=== PATIENT | female | born 1940 | race Caucasian/White ===

== ENCOUNTER 2016-07-10 15:22 | Emergency (ER) | payer OTHER ==
[~2016-07-10] VITALS: Ht 152.4 cm; Wt 73.0 kg
[~2016-07-10 15:22] MED LIST: ACCUPRIL40 MG PO; AMARYL2 MG PO; ANTACID ULTRA1000 M1; ASPIRIN81 M1 PO; ATIVAN0.5 MG PO; BACTRIM DS 8001 TA1 PO; CEFOTAXIME IJ; CIPROFLOXACIN500 MG PO; CLONIDINE0.3 MG PO; COLACE100 MG PO; COREG25 MG PO; DO NOT PROFILE T1 EA; DOXYCYCLINE HY100 M3 PO; FE TINIC PO; Flagyl500 M1 IV; GLUCOPHAGE500 MG PO; GLYBURIDE5 MG PO; HYDROCHLOROTHIA25 MG PO; I VITE PO; LANTUS100 U/ML SC; LASIX20 MG PO; LEVEMIR SC; LIPITOR80 MG PO; MASON NATURAL2000 IU PO; MIRALAX17 GM/PACK PO; NATURE'S BLEND F1 MG PO; NORCO 325 MG-51 TAB PO; NORVASC2.5 MG PO; NOVOLIN R100 U/ML SC; OYSTER CALCIUM500 M1 PO; PLAVIX75 MG PO; PROTONIX40 MG PO; TYLENOL325 M1 PO; Tegretol-Xr 20200 MG PO; URECHOLINE25 MG PO; VICODIN ES 7501 TA1 PO; VITAMIN D31000 IU PO; [UNRECOGNIZED DRUG - SUPPLY]
[2016-07-10 15:36] LABS: BASO % 0.2 % (0.0-1.0); EOS # 0.1 10*3/uL (0.0-0.4); EOS % 1.1 % (1.0-4.0); HEMATOCRIT 31.7 % (37.0-47.0); HEMOGLOBIN 10.3 g/dl (12.0-16.0); LYMPH # 4.4 10*3/uL (1.3-4.4); LYMPH % 48.5 % (27.0-41.0); MEAN CELL VOLUME 101.3 fl (81.0-99.0); MEAN CORPUSCULAR HGB 32.9 pg (27.0-31.0); MEAN CORPUSCULAR HGB CONC 32.5 g/dl (33.0-37.0); MEAN PLATELET VOLUME 10.2 fl (9.6-12.3); MONO # 0.4 10*3/uL (0.1-1.0); MONO % 4.4 % (3.0-9.0); NEUT # 4.1 10*3/uL (2.3-7.9); NEUT % 45.6 % (47.0-73.0); PLATELET COUNT AUTOMATED 166 10*3/uL (130-400); RED BLOOD COUNT 3.13 10*6/uL (4.10-5.10); RED CELL DISTRI WIDTH 13.7 % (0-14.5)
[2016-07-10 15:45] LABS: PROTHROMBIN TIME 10.8 SECONDS (9.0-12.4)
[2016-07-10 15:52] VITALS: BP 160/62
[2016-07-10 15:52] LABS: ALBUMIN 3.4 gm/dl (3.1-4.5); ALKALINE PHOSPHATASE 83 U/L (45-117); BILIRUBIN, TOTAL 0.1 mg/dl (0.2-1.0); BUN 49 mg/dl (7-24); CARBON DIOXIDE 28 mmol/L (21-32); CHLORIDE 105 mmol/L (98-107); CKMB 1.5 ng/ml (0.5-3.6); CPK 74 U/L (26-192); EST GLOM FILT AFRICAN AMERICAN 41 ml/min; GLUCOSE 160 mg/dL (65-99); MAGNESIUM 2.5 mg/dL (1.5-2.1); POTASSIUM 3.9 mmol/L (3.5-5.1); SGOT/AST 19 IU/L (3-35); SGPT/ALT 28 U/L (12-78); SODIUM 142 mmol/L (136-145); TOTAL PROTEIN 7.6 gm/dL (6.4-8.2)
[2016-07-10 15:53] LABS: C-REACTIVE PROTEIN < 0.29 MG/DL (0-0.3)
[2016-07-10 15:55] LABS: TROPONIN I 0.245 ng/ml (<0.045)
== END 2016-07-10 16:06 | disposition short-term general hospital (02) ==
LOC: ED 15:22
PROVIDERS: Emergency Medicine
DX: I21.3 ST elevation (STEMI) myocardial infarction of unspecified site (principal); I25.10 Atherosclerotic heart disease of native coronary artery without angina pectoris; E11.9 Type 2 diabetes mellitus without complications; Z90.49 Acquired absence of other specified parts of digestive tract; Z88.0 Allergy status to penicillin; Z88.1 Allergy status to other antibiotic agents; Z88.6 Allergy status to analgesic agent; Z88.8 Allergy status to other drugs, medicaments and biological substances; Z79.899 Other long term (current) drug therapy

== ENCOUNTER 2016-07-28 10:02 | Inpatient (IN) | payer OTHER ==
[~2016-07-28] VITALS: Ht 152.4 cm; Wt 76.9 kg
--- NOTE | ~2016-07-28 | CON ---
[place], [place] REPORT OF CONSULTATION NAME: GISELE CHAO UNIT #: [id number] ROOM: 507 DOCTOR: TONY SIMMONS MD BIRTHDATE: [birth year] DOS: 07/28/2016 CARDIOLOGY CONSULTATION REASON FOR CONSULTATION: Chest pain. HISTORY OF PRESENT ILLNESS: Gisele is a 76-year-old woman who does have a history of diabetes type 2, hypertension, hyperlipidemia, remote stroke, depression and some degree of dementia. She does have a history of atherosclerotic heart disease and has been seen in the past by ____. His note from 2008 indicates that she has had a history of myocardial infarction and previous stents, but the details were not available. The patient recently presented to the Emergency Room at [facility] with substernal chest pain, which radiated into her back between her shoulder blades. Her electrocardiogram showed inferior ST segment elevation and therefore she was sent by air ambulance to [facility] and was taken to the catheterization laboratory by Dr. Kwadwo Michael. At time of her catheterization, she was found to have moderate diffuse disease of a heavily calcified left main coronary artery. The LAD had 2 patent stents in its proximal and mid portions. The circumflex had a 90% ostial obtuse marginal stenosis. The right coronary artery was a dominant vessel with a 90% ostial stenosis and 100% mid vessel occlusion. She did undergo placement of two drug-eluting stents in the right coronary artery, a Synergy 2.75 x 3.8 mm stent was placed in the mid portion of the vessel and a 3.0 x 28 mm stent was placed in the proximal portion of the vessel. There was no stenosis at the end of the procedure in the right coronary artery. The patient tolerated the procedure well. Cardiac troponin levels were not obtained. She was discharged on dual antiplatelet therapy with Effient and aspirin. She states she was doing well until today, she awakened with pain in her left chest. She was given a single nitroglycerin at the snf and her pain resolved quickly, but she states that the overall duration of the pain was about an hour. Her electrocardiogram did not show any acute changes and her cardiac troponin levels are minimally elevated at 0.048. A cardiology consultation was therefore requested. Currently, the patient states that she feels well and indeed states that the pains that she had this morning were not similar to what she had had when she had her heart attack a few weeks ago. PAST MEDICAL HISTORY: Includes, 1. Type 2 diabetes mellitus. 2. Hypertension. 3. Hyperlipidemia. 4. History of stroke. 5. Depression. 6. Mild dementia. 7. Gastroesophageal reflux disease. [place], [place] REPORT OF CONSULTATION NAME: GISELE CHAO UNIT #: [id number] ROOM: 507 DOCTOR: TONY SIMMONS MD BIRTHDATE: [birth year] 8. ICD placed by Dr. Jasso in the distant past. Details not currently available. FAMILY HISTORY: Negative for early coronary disease. REVIEW OF SYSTEMS: The patient denies diplopia, loss of vision, or focal weakness. She denies lightheadedness or syncope. She denies orthopnea or PND. She is sedentary and mostly bed bound. She denies fevers, chills or sweats. She denies any recent weight change. She denies orthopnea or PND. She denies nausea or vomiting. She denies any cough, hemoptysis, or hematemesis. She denies any change in bowel or bladder habits and denies blood in her urine or stools. She denies any peripheral edema. The remainder of the review of systems is negative except as noted above. MEDICATIONS: Prior to admission, Pulmicort Respules 0.5 mg inhaled b.i.d., Atrovent by nebulizer every 4 hours, Xalatan eye drops in both eyes at bedtime, acetaminophen p.r.n., atorvastatin 80 mg daily, urecholine 25 mg daily, oyster shell calcium 500 mg t.i.d., carbamazepine 200 mg t.i.d., cholecalciferol 1000 units 5 tablets daily, clonidine 0.3 mg b.i.d., docusate 100 mg b.i.d., folic acid 1 mg daily, furosemide 40 mg daily, glimepiride 2 mg daily, hydralazine 100 mg daily, hydrocodone 2 tablets q. 6 hours, Ferrex 150 mg daily, metoprolol succinate 100 mg daily, pantoprazole 40 mg daily, potassium 10 mEq daily, Effient 10 mg daily, quinapril 40 mg daily, vitamin A, C, E and zinc daily, Trintellix 20 mg at bedtime, NovoLog insulin by sliding scale, Levemir insulin 30 units subcutaneously daily, Aspercreme applied t.i.d. as needed and fentanyl transdermal patch 12.5 mcg changed every third day. ALLERGIES: SHE LISTS ALLERGIES TO NIACIN, CEPHALOSPORINS, PENICILLIN, TAPE, CODEINE, PYRIDOXINE, RIBOFLAVIN, AND THIAMINE. SOCIAL HISTORY: The patient is a snf resident. She does not smoke or drink. PHYSICAL EXAMINATION: GENERAL: The patient is an elderly white female who is awake, alert and oriented. VITAL SIGNS: Pulse is 80 and regular, blood pressure is 146/58. She is afebrile. She weighs 76.9 kg and has a body mass index of 33.1 HEENT: Normocephalic, atraumatic. Extraocular muscles are intact. Sclerae are clear. Pupils are equal, round and reactive to light. The oral mucosa is moist. Tongue is midline. NECK: Supple. She has no jugular distention or hepatojugular reflux. Carotids are full. She does have transmitted murmurs into the carotids bilaterally. She has no neck or supraclavicular masses. No thyromegaly. RESPIRATORY: Respirations are unlabored. Her chest is clear. She has no presacral edema or chest wall tenderness. CARDIOVASCULAR: Her heart has a regular rhythm. She has a grade 3/6 late peaking systolic ejection murmur along the left sternal border radiating into the base. No diastolic murmurs are present. The PMI is not displaced. There is no precordial heave, lift or thrill. [place], [place] REPORT OF CONSULTATION NAME: GISELE CHAO UNIT #: [id number] ROOM: 507 DOCTOR: TONY SIMMONS MD BIRTHDATE: [birth year] ABDOMEN: Soft and normally active without masses, organomegaly or bruits. EXTREMITIES: Showed no edema. Peripheral pulses are diminished, but palpable in the feet bilaterally. Her electrocardiogram showed sinus rhythm with an inferior wall myocardial infarction. The QT interval is at the upper limits of normal. No acute ST elevation is seen. She did have an echocardiogram when she was recently hospitalized at [facility] on 07/11/2016. The left ventricle was normal in size with septal hypokinesis, but was otherwise normal ejection fraction 45-50%. The left atrium was poorly visualized. There was focal calcification of the mitral valve leaflets with mild mitral insufficiency, aortic valve leaflets were not well visualized. Mild aortic stenosis was felt to be present. Hemoglobin is 9.5, white count 8000, platelet count 144,000. Sodium 145, potassium 4.6, BUN 40, creatinine 1.27, magnesium 2.3, troponin 0.048. IMPRESSIONS: 1. Recent acute ST elevation myocardial infarction involving the inferior wall, early July 2016. The patient was treated with 2 drug-eluting stents to the right coronary artery. She does have residual disease in an obtuse marginal branch of the circumflex, which was not approached and is being managed medically. 2. History of atherosclerotic heart disease, status post myocardial infarction and stents in the distant past. 3. Type 2 diabetes mellitus. 4. History of type 2 diabetes mellitus. 5. History of essential hypertension. 6. History of anxiety and depression. 7. Possible mild dementia. 8. Dual chamber ICD in situ. PLAN: The patient will be observed overnight with serial cardiac biomarkers. We will try to determine a pattern to her troponin elevation. If she does not have a rise and fall in the troponins, we will probably just treat her medically and observe her. If she does have an elevation in her troponins that is consistent with an acute event, we probably will do a myocardial perfusion examination to determine her risk for future cardiac problems. I thank Dr. Quiles for asking our advice regarding her care. [place], [place] REPORT OF CONSULTATION NAME: GISELE CHAO UNIT #: [id number] ROOM: 507 DOCTOR: TONY SIMMONS MD BIRTHDATE: [birth year] TONY SIMMONS MD CM:CONSTR:REPORT OF CONSULTATION 25 07/28/162225 interface
--- NOTE | ~2016-07-28 | PR ---
[place], [place] PROGRESS NOTE NAME: [id number] UNIT #: [id number] ROOM: 507 DOCTOR: PRAKASH CHAO MD BIRTHDATE: [birth year] DOS: 07/30/2016 SUBJECTIVE: The patient states that her legs hurt, but does not have any chest pains. OBJECTIVE: VITAL SIGNS: Graphic trend shows a pressure 140/52, pulse is 62, respirations 18, temperature 98.4. LUNGS: Clear. HEART: Regular. ABDOMEN: Obese. EXTREMITIES: Without any edema. ASSESSMENT AND PLAN: 1. Coronary artery disease of [place] coronary, status post stent placement recently. 2. Non-ST elevation [place], for stress test today. 3. Type 2 diabetes mellitus, poorly controlled. Further increase in Levemir to be made. 4. Benign hypertension, controlled. 5. Chronic pain from degenerative lumbar spinal stenosis already on multiple pain medications. PRAKASH CHAO MD CM:PNTRANS 0725 [id number] PRAKASH CHAO MD 07/30/16 0827 interface
--- NOTE | ~2016-07-28 | EKG ---
[place], [place] ELECTROCARDIOGRAM REPORT NAME: GISELE CHAO UNIT #: [id number] ROOM: 507 DOCTOR: TONY SIMMONS MD BIRTHDATE: [birth year] DOS: 07/29/2016 TIME: 0728 hours. FINDINGS: 1. Sinus rhythm. 2. Leftward axis. 3. First-degree AV block. 4. Nonspecific T-wave flattening. 5. Abnormal EKG. TONY SIMMONS MD CM:EKGRPT:ELECTROCARDIOGRAM REPORT [id number] TONY SIMMONS MD
--- NOTE | ~2016-07-28 | PR ---
[place], [place] PROGRESS NOTE NAME: GISELE CHAO [facility] #: [id number] UNIT #: [id number] ROOM: 507 DOCTOR: PRAKASH CHAO MD BIRTHDATE: [birth year] DOS: 07/29/2016 SUBJECTIVE: The patient does not have any new complaints this morning. OBJECTIVE: VITAL SIGNS: Graphic trend shows a pressure 111/53, pulse of 73, respirations 18, temperature 98.7. LUNGS: Clear. HEART: Regular. ABDOMEN: Obese, soft. EXTREMITIES: Without any edema. ASSESSMENT AND PLAN: 1. Coronary artery disease of [place] coronaries, status post stent placement of RCA earlier this month at [place]. 2. Chest pain with elevated enzymes, possible non-ST elevation myocardial infarction. Since the troponins did go up slightly, and then it has come down this morning. Dr. Soto to make decision as regards to further treatment plan. The patient is on appropriate medications. 3. Type 2 diabetes mellitus, insulin-dependent. Blood sugars to be checked twice daily, coverage scale ordered. PRAKASH CHAO MD CM:PNTRANS 0736 0831 PRAKASH CHAO MD 07/29/16 0832 interface
--- NOTE | ~2016-07-28 | PR ---
[place], [place] PROGRESS NOTE NAME: GISELE CHAO [facility] #: [id number] UNIT #: [id number] ROOM: 507 DOCTOR: PRAKASH CHAO MD BIRTHDATE: [birth year] DOS: SUBJECTIVE: The patient is doing fine without any complaints. Denies any chest pains, palpitations or shortness of breath. Resting comfortably. OBJECTIVE: VITAL SIGNS: Graphic trend shows a pressure of 118/51, pulse of 60, respirations 20, temperature 98.5. LUNGS: Clear. HEART: Regular. ABDOMEN: Soft. EXTREMITIES: Without any edema. Stress test showed no reversible perfusion defects with normal systolic function. Blood sugar this morning was 139. ASSESSMENT AND PLAN: 1. Coronary artery disease of [place] coronaries: 2. Non-ST elevation [place] with a negative stress test. No further workup is being planned. 3. Type 2 diabetes mellitus, insulin-dependent, poorly controlled. If stable, the patient should go back to the longterm today. PRAKASH CHAO MD CM:PNTRANS 0726 0124 PRAKASH CHAO MD 08/01/16 0125 interface
--- NOTE | ~2016-07-28 | PR ---
[place], [place] PROGRESS NOTE NAME: GISELE DANIELSON [facility] #: [id number] UNIT #: [id number] ROOM: 507 DOCTOR: TONY SIMMONS MD BIRTHDATE: [birth year] DOS: SUBJECTIVE: The patient was seen at her bedside today 07/29/2016 for followup of her atherosclerotic heart disease, recent ST elevation myocardial infarction in early July 2016, and episode of chest pain which prompted the current admission. The patient tells me she feels well today. She has not had any pain since her hospitalization. Review of her troponin levels; however, does show a mild elevation with a rise and fall pattern suggesting recent myocardial injury. The peak troponin level was 0.063 and is now falling again. PHYSICAL EXAMINATION: GENERAL: She is a well-nourished white female who is awake, alert and oriented. VITAL SIGNS: Pulse is 70 and regular; blood pressure is 136/60. She is afebrile. She weighs 76.9 kilograms with a body mass index of 33.1. HEENT: Normocephalic, atraumatic. Extraocular muscles are intact. Sclerae are clear. NECK: Supple. She has no jugular distention. Carotids are full. I heard no bruits. LUNGS: Respirations are unlabored. Her chest is clear to auscultation and percussion. She has no presacral edema. HEART: Regular rhythm. She has a fourth heart sound, but no third heart sound or murmur. The PMI is not displaced. ABDOMEN: Soft and normally active. EXTREMITIES: Showed no edema. LABORATORY DATA: As noted above, peak troponin was 0.063 and is now falling. Her hemoglobin is 9.5 and fairly stable. White count 8000, platelet count 144,000. Sodium 145, potassium 4.6, BUN 40, creatinine 1.27. I did review her electrocardiogram from this morning. It shows sinus rhythm and does not show any acute ST elevation or depression. IMPRESSION: 1. Episode of chest pain prompting current admission, cardiac troponin levels are consistent with a small amount of myocardial injury. 2. Recent acute ST elevation myocardial infarction involving the inferior wall, early July 2016. The patient had 2 drug-eluting stents placed in the right coronary artery at [facility]. She did have residual disease in an obtuse marginal branch of the circumflex and this was not approached. Medical management was elected. 3. History of atherosclerotic heart disease, status post myocardial infarction and stents in the distant past. 4. Type 2 diabetes mellitus. 5. History of essential hypertension. 6. History of anxiety and depression. 7. Possible mild dementia. [place], [place] PROGRESS NOTE NAME: GISELE DANIELSON UNIT #: [id number] ROOM: 507 DOCTOR: TONY SIMMONS MD BIRTHDATE: [birth year] 8. Dual chamber ICD in place. PLAN: The patient's medications have been adjusted. She is on adequate doses of beta blockers along with GARCÍA inhibitor, statin, aspirin and prasugrel. She states that she has not had any break in her medical management and apparently her medications are provided to her by the halfway. It is possible that the current event is caused by her residual circumflex coronary artery disease rather than related to her recent inferior wall myocardial infarction. She does seem to be recovering nicely. For now, I would continue her current medical regimen. We will plan on a risk stratifying pharmacologic stress test within the next 24 hours. If this shows little or no myocardium at risk then continued medical management would be appropriate if it does show extensive areas of ischemia, we will have to discuss how invasive we want to be with the patient and her caretakers. I thank Dr. Quiles and Dr. Danielson for asking our advice regarding her care. TONY SIMMONS MD CM:PNTRANS 0 8 TONY SIMMONS MD 07/29/16 0940 interface
--- NOTE | ~2016-07-28 | PR ---
[place], [place] PROGRESS NOTE NAME: GISELE DANIELSON [facility] #: [id number] UNIT #: [id number] ROOM: 507 DOCTOR: TONY SIMMONS MD BIRTHDATE: [birth year] DOS: 07/30/2016 CARDIOLOGY PROGRESS NOTE SUBJECTIVE: The patient was seen today in the Cardiology Department just prior to her stress test on 07/30/2016. She states that she has had no problems overnight. She is a 76-year-old woman who had a recent ST elevation myocardial infarction in early July 2016. She was admitted on this occasion because of her brief episode of chest pain, which did respond to nitroglycerin. The patient denies any further chest pain and states that she has not had any pain since she was hospitalized. Her troponin levels however did show a mild elevation with a rise and fall pattern consistent with a recent myocardial injury. Peak troponin was 0.063. PHYSICAL EXAMINATION: VITAL SIGNS: Today, her pulse is 62 and regular, blood pressure is 154/64. She is afebrile. She weighs 76.9 kilograms with a body mass index of 33.1. NECK: Supple. She has no jugular distention. Carotids are full. LUNGS: Respirations are unlabored. Her chest is clear to auscultation and percussion. HEART: Has a regular rhythm. She has a fourth heart sound, but no third heart sound or murmur. The PMI was not displaced. ABDOMEN: Soft and normally active without masses, organomegaly or bruits. EXTREMITIES: Showed no edema. IMPRESSION: 1. Episode of chest pain prompting the current admission. Troponin levels consistent with small amount of myocardial injury. 2. Acute ST elevation myocardial infarction involving the inferior wall in early July 2016. The patient had two drug-eluting stents placed in the right coronary artery. She did have residual disease in an obtuse marginal branch of the circumflex, which was not approached and is being treated medically. 3. History of atherosclerotic heart disease, status post myocardial infarction and stents in the distant past. 4. Type 2 diabetes mellitus. 5. History of essential hypertension. 6. History of anxiety and depression. 7. Possible mild dementia. 8. Dual chamber ICD in place. PLAN: We will be doing a risk stratifying pharmacologic myocardial perfusion study today. If it is low to intermediate risk, we will probably recommend continued medical therapy without further workup. I thank Dr. Danielson for asking our advice regarding management of this patient. [place], [place] PROGRESS NOTE NAME: GISELE DANIELSON UNIT #: [id number] ROOM: 507 DOCTOR: TONY SIMMONS MD BIRTHDATE: [birth year] TONY SIMMONS MD CM:PNZOHAIB [id number] TONY SIMMONS MD 07/30/16 1120 interface
--- NOTE | ~2016-07-28 | WRIGHTHP ---
[place], [place] PATIENT HISTORY AND PHYSICAL EXAM NAME: GISELE CHAO [facility] #: [id number] UNIT #: [id number] ROOM: 507 DOCTOR: REBECA EVERETT MD BIRTHDATE: [birth year] DOS: 07/28/2016 HISTORY OF PRESENT ILLNESS: 1. The patient is a 76-year-old female with a past medical history of recent heart catheterization at [facility] a couple of weeks back, where she had two stent placements. 2. History of type 2 diabetes mellitus. 3. Coronary artery disease of the [place] vessels. 4. Cardiomyopathy with left ventricular ejection fraction of 40%. 5. History of internal cardiac defibrillator placement. 6. History of ischemic colitis and GI bleed in the past. 7. Iron deficiency anemia. The patient was sent over from senior care at [facility] for complaints of chest pains. The patient says she was given one sublingual nitroglycerin and her pain which was in the front of her chest area resolved, but it did not radiate into her neck or back or arms. No shortness of breath or diaphoresis. 8. No GI or urinary symptoms. REVIEW OF SYSTEMS: LUNGS: No increasing shortness of breath or wheezing. GASTROINTESTINAL: No nausea, vomiting, diarrhea or constipation. CARDIOVASCULAR: Complains of one episode of chest pain. ALLERGIES: KNOWN ALLERGIES TO PENICILLINS, CEPHALOSPORINS, NIACIN V1, V2, CODEINE ____ PHYSICAL EXAMINATION: GENERAL: Alert and oriented x3, in no visible distress, generalized weakness and morbid obesity. VITAL SIGNS: Blood pressure 147/58, heart rate 86 beats per minute, breathing 16 times per minute, temperature 98.7 degrees Fahrenheit. GENERAL APPEARANCE: The patient is alert and oriented x3, in no visible distress. HEENT AND NECK: Extraocular movements are intact. Sclerae are anicteric. Oral mucosa is moist and clean. No obvious facial weakness. Neck is supple without any lymphadenopathy. No thyromegaly. No JVD. No carotid arterial bruits. LUNGS: Clear to auscultation. No wheezing. No rhonchi. CARDIOVASCULAR SYSTEM: Heart rate is regular in rate and rhythm. S1 and S2 normally audible. No significant murmur or any other abnormal cardiac sounds. ABDOMEN: Soft, nontender. No obvious organomegaly. Bowel sounds are present. No obvious herniation. EXTREMITIES: Without significant cyanosis or edema. Warm to touch. CENTRAL NERVOUS SYSTEM: Alert and oriented x3. Cranial nerves II-XII are intact. Speech is normal. The patient is able to move all extremities. Normal muscle strength. Deep tendon reflexes are equal on both sides. Plantars were downgoing. The patient with one episode of chest pains and recent heart catheterization with 2 stent placements, both stents were placed in right coronary artery. Hemoglobin of 9.5. No leucocytosis, some lymphocytosis with 50% lymphocytes on [place], [place] PATIENT HISTORY AND PHYSICAL EXAM NAME: GISELE CHAO UNIT #: [id number] ROOM: 507 DOCTOR: REBECA EVERETT MD BIRTHDATE: [birth year] differential count. IMPRESSION: The patient with history of coronary artery disease of the [place] vessels, status post two stent placements in RCA recently, had one episode of chest pain at the senior care, but she is pain free now. Case discussed with Dr. Trevor Soto, the education rep belonging to the ____ stent placements at [facility] recently. The patient is being continued on Effient, which she was taking at senior care. Benign essential hypertension. The patient to be continued on metoprolol and ____. Mixed hyperlipidemia. The patient is on Lipitor, which will be continued. Type 2 diabetes mellitus. The patient takes glimepiride. Blood sugars seem to be reasonably controlled. The patient also takes Levemir insulin. Chronic constipation, controlled with Colace. REBECA EVERETT MD CM:HISPHYS:PATIENT HISTORY AND PHYSICAL EXAMINATION 1543 [id number] REBECA EVERETT MD 07/28/16 1622 interface
--- NOTE | ~2016-07-28 | ST ---
[place], [place] EXERCISE STRESS TEST REPORT [id number] UNIT #: [id number] ROOM: 507 DOCTOR: TONY SIMMONS MD BIRTHDATE: [birth year] DOS: 07/30/2016 PHARMACOLOGIC MYOCARDIAL STRESS TEST INDICATIONS: Risk stratification post-non ST elevation myocardial infarction, precordial chest pain. PROCEDURE: The patient was given rapid infusion of regadenoson 0.4 mg intravenously followed by a saline flush. She experienced dyspnea and mild nausea, which resolved spontaneously. Her resting electrocardiogram showed a sinus rhythm with poor precordial R-wave progression and nonspecific T-wave flattening. With the infusion, her resting heart rate of 61 [place] to 91. Her resting blood pressure of 160/80 fell to 138/64, but she did not have any diagnostic ST or T-wave changes. A 40 seconds after the infusion, the patient was given radionuclide intravenously. IMPRESSION: 1. Well tolerated infusion of regadenoson. 2. Radionuclide administered. Please see the separate imaging report for further details of the patient's stress test results. TONY SIMMONS MD CM:STRESS:EXERCISE STRESS TEST REPORT [id number] TONY SIMMONS MD
--- NOTE | ~2016-07-28 | DS ---
[place], [place] DISCHARGE SUMMARY NAME: GISELE CHAO [facility] #: [id number] UNIT #: [id number] ROOM: 507 DOCTOR: JEREMIE DUVALLPRAKASH BIRTHDATE: [birth year] DOS: 07/31/2016 DIAGNOSES: 1. Eap-IO-lwlimnftr myocardial infarction. 2. Coronary artery disease, galena coronaries, status post stent placement of right coronary artery. 3. Type 2 diabetes mellitus, poorly controlled. 4. Benign hypertension. 5. Mixed hyperlipidemia. 6. Alzheimer dementia, early onset. 7. Degenerative spinal stenosis with chronic back pain. DISCHARGE MEDICATIONS: Quinapril 40 daily, bethanechol 25 daily, Tylenol 325 q. 4, calcium 500 t.i.d., vitamin D 1000 units daily, folic acid 1 mg daily, clonidine 0.3 b.i.d., Aspercreme 3 ounces t.i.d., potassium 10 daily, multivitamin 1 tablet daily, Lasix 40 daily, hydralazine 100 daily, Protonix 40 daily, fentanyl 12.5 q. 72 hours, iron 150 daily, Effient 10 mg daily, latanoprost 1 drop at bedtime, carbamazepine 200 t.i.d., Colace 200 b.i.d., atorvastatin 180 mg daily, Trintellix 20 at bedtime, sliding scale with NovoLog, Pulmicort 0.5 b.i.d. which has been made p.r.n., DuoNeb q. 4 p.r.n. for shortness of breath, [place] 5 two tablets q. 6 p.r.n. for pain, metoprolol 100 daily, glimepiride 2 mg daily. HOSPITAL COURSE: This patient comes in with complaints of chest pain. Please refer to H and P for details. After admission, rule out OR protocol showed some rise in the troponins, which did finally normalize. Dr. Soto did see the patient. No ST-T wave changes were seen on the monitor. The patient was later taken for a stress test and this did not show any acute reversible perfusion defects. So, no workup is being planned. The patient is continued on the home medications. Blood sugars have not been very well controlled. So, the Levemir dosage has been increased to 34 units at bedtime. Rest of the medications will remain the same. The patient also needs to have an iron and B12 level at the residential. [place], [place] DISCHARGE SUMMARY NAME: JEREMIETERRANCEGISELE UNIT #: [id number] ROOM: [facility] DOCTOR: PRAKASH CHAO MD BIRTHDATE: [birth year] PRAKASH CHAO MD CM:DISCHARG [id number] PRAKASH CHAO MD 07/31/16 0817 interface
[2016-07-28 10:06] VITALS: BP 144/80
[2016-07-28 10:28] LABS: HEMATOCRIT 29.2 % (37.0-47.0); HEMOGLOBIN 9.5 g/dl (12.0-16.0); MEAN CELL VOLUME 101.7 fl (81.0-99.0); MEAN CORPUSCULAR HGB 33.1 pg (27.0-31.0); MEAN CORPUSCULAR HGB CONC 32.5 g/dl (33.0-37.0); MEAN PLATELET VOLUME 10.4 fl (9.6-12.3); PLATELET COUNT AUTOMATED 144 10*3/uL (130-400); RED BLOOD COUNT 2.87 10*6/uL (4.10-5.10)
[2016-07-28 10:34] LABS: PROTHROMBIN TIME 10.2 SECONDS (9.0-12.4)
[2016-07-28 10:47] LABS: ALBUMIN 3.2 gm/dl (3.1-4.5); ALKALINE PHOSPHATASE 82 U/L (45-117); BILIRUBIN, TOTAL 0.2 mg/dl (0.2-1.0); BUN 40 mg/dl (7-24); CARBON DIOXIDE 24 mmol/L (21-32); CHLORIDE 109 mmol/L (98-107); CKMB 1.5 ng/ml (0.5-3.6); CPK 57 U/L (26-192); EST GLOM FILT AFRICAN AMERICAN 50 ml/min; GLUCOSE 168 mg/dL (65-99); MAGNESIUM 2.3 mg/dL (1.5-2.1); POTASSIUM 4.6 mmol/L (3.5-5.1); SGOT/AST 22 IU/L (3-35); SGPT/ALT 21 U/L (12-78); SODIUM 145 mmol/L (136-145); TOTAL PROTEIN 6.8 gm/dL (6.4-8.2)
[2016-07-28 10:48] LABS: C-REACTIVE PROTEIN < 0.29 MG/DL (0-0.3)
[2016-07-28 10:49] LABS: MONOCYTE # 0.4 10*3/uL (0.1-1.0); NEUTROPHIL # 3.6 10*3/uL (2.3-7.9); NEUTROPHILS 45 % (47-73); TOTAL CELLS COUNTED 100 #CELLS
[2016-07-28 10:50] LABS: PLATELET SUFFICIENCY NORMAL (NORMAL)
[2016-07-28 10:52] LABS: TROPONIN I 0.048 ng/ml (<0.045)
[2016-07-28] MEDS ORDERED: ASPERCREAM1 EA T (11:11)
[2016-07-28] MEDS ORDERED: K-TAB10 MEQ PO (11:13)
[2016-07-28] MEDS ORDERED: I VITE PROTECT PO (11:14)
[2016-07-28] MEDS ORDERED: FUROSEMIDE40 MG PO (11:14)
[2016-07-28] MEDS ORDERED: PANTOPRAZOLE SO40 MG PO (11:15)
[2016-07-28] MEDS ORDERED: HYDRALAZINE HC100 MG PO (11:15)
[2016-07-28] MEDS ORDERED: FENTANYL T12.5 MCG/H TD (11:17)
[2016-07-28] MEDS ORDERED: FERREX 150150 MG PO (11:17)
[2016-07-28] MEDS ORDERED: URECHOLINE25 MG PO (11:18)
[2016-07-28] MEDS ORDERED: EFFIENT10 M1 PO (11:19)
[2016-07-28] MEDS ORDERED: XALATAN 0.005%2.5 ML INTRAOC (11:21)
[2016-07-28] MEDS ORDERED: DOK100 M1 PO (11:22)
[2016-07-28] MEDS ORDERED: CARBATROL200 MG PO (11:22)
[2016-07-28] MEDS ORDERED: LIPITOR80 MG PO (11:23)
[2016-07-28] MEDS ORDERED: NOVOLOG FLEX100 U/ML SC (11:24)
[2016-07-28] MEDS ORDERED: TRINTELLIX20 MG PO (11:26)
[2016-07-28] MEDS ORDERED: PULMICORT RESP0.5 M1 INH (11:27)
[2016-07-28] MEDS ORDERED: Ipratropium Brom3 ML INH (11:27)
[2016-07-28 11:45] VITALS: BP 147/58
[2016-07-28] MEDS ORDERED: NORCO 5-325 TA1 EACH PO (11:54)
[2016-07-28 12:00] VITALS: BP 147/58
[2016-07-28] MEDS ORDERED: METOPROLOL SUC100 M1 PO (12:05)
[2016-07-28] MEDS ORDERED: AMARYL2 MG PO (12:06)
[2016-07-28] MEDS ORDERED: OYSTER SHELL C1 EAC1 PO (12:07)
[2016-07-28 16:00] VITALS: BP 146/58
[2016-07-28 20:00] VITALS: BP 150/71
[2016-07-29 00:16] VITALS: BP 111/53
[2016-07-29 08:00] VITALS: BP 136/60
[2016-07-29 12:00] VITALS: BP 126/68
[2016-07-29 16:00] VITALS: BP 114/54
[2016-07-29 20:00] VITALS: BP 141/54
[2016-07-30 00:04] VITALS: BP 140/52
[2016-07-30 08:00] VITALS: BP 154/64
[2016-07-30 12:00] VITALS: BP 160/62
[2016-07-30 16:00] VITALS: BP 152/80
[2016-07-30 20:00] VITALS: BP 162/67
[2016-07-31] VITALS: BP 118/51
[2016-07-31] MEDS ORDERED: LEVEMIR SC (07:24)
[2016-07-31 08:00] VITALS: BP 142/66
== END 2016-07-31 11:05 | disposition other institution (70) | DRG 281 ==
LOC: ED 10:02 → 5E 11:02 → EDHOLD 11:02 → 5E 11:16
PROVIDERS: Student in an Organized Health Care Education/Training Program
PROC: 4A02XM4 Measurement of Cardiac Total Activity, External Approach (ICD-10-PCS; principal; 2016-07-30)
PROC: 3E033HZ Introduction of Radioactive Substance into Peripheral Vein, Percutaneous Approach (ICD-10-PCS; principal; 2016-07-30)
DX: I21.4 Non-ST elevation (NSTEMI) myocardial infarction (principal); J98.11 Atelectasis; E11.65 Type 2 diabetes mellitus with hyperglycemia; G30.0 Alzheimer's disease with early onset; F02.80 Dementia in other diseases classified elsewhere, unspecified severity, without behavioral disturbance, psychotic disturbance, mood disturbance, and anxiety; I25.10 Atherosclerotic heart disease of native coronary artery without angina pectoris; M48.06 Spinal stenosis, lumbar region; F41.9 Anxiety disorder, unspecified; F32.9 Major depressive disorder, single episode, unspecified; I10 Essential (primary) hypertension; E78.2 Mixed hyperlipidemia; G89.29 Other chronic pain; M54.9 Dorsalgia, unspecified; Z88.0 Allergy status to penicillin; Z88.1 Allergy status to other antibiotic agents; Z88.6 Allergy status to analgesic agent; Z95.5 Presence of coronary angioplasty implant and graft; Z95.810 Presence of automatic (implantable) cardiac defibrillator; Z79.4 Long term (current) use of insulin; Z82.49 Family history of ischemic heart disease and other diseases of the circulatory system; Z68.33 Body mass index [BMI] 33.0-33.9, adult

== ENCOUNTER 2016-11-10 18:33 | Emergency (ER) | payer OTHER ==
[~2016-11-10] VITALS: Ht 167.6 cm; Wt 72.6 kg
[~2016-11-10 18:33] MED LIST changes: +ASPERCREAM1 EA T; +CARBATROL200 MG PO; +DOK100 M1 PO; +EFFIENT10 M1 PO; +FENTANYL T12.5 MCG/H TD; +FERREX 150150 MG PO; +FUROSEMIDE40 MG PO; +HYDRALAZINE HC100 MG PO; +I VITE PROTECT PO; +Ipratropium Brom3 ML INH; +K-TAB10 MEQ PO; +METOPROLOL SUC100 M1 PO; +NORCO 5-325 TA1 EACH PO; +NOVOLOG FLEX100 U/ML SC; +OYSTER SHELL C1 EAC1 PO; +PANTOPRAZOLE SO40 MG PO; +PULMICORT RESP0.5 M1 INH; +TRINTELLIX20 MG PO; +XALATAN 0.005%2.5 ML INTRAOC
[2016-11-10 19:01] LABS: BASO % 0.1 % (0.0-1.0); EOS # 0.1 10*3/uL (0.0-0.4); EOS % 1.6 % (1.0-4.0); HEMATOCRIT 28.8 % (37.0-47.0); HEMOGLOBIN 9.1 g/dl (12.0-16.0); LYMPH # 2.9 10*3/uL (1.3-4.4); LYMPH % 35.5 % (27.0-41.0); MEAN CELL VOLUME 99.7 fl (81.0-99.0); MEAN CORPUSCULAR HGB 31.5 pg (27.0-31.0); MEAN CORPUSCULAR HGB CONC 31.6 g/dl (33.0-37.0); MEAN PLATELET VOLUME 9.8 fl (9.6-12.3); MONO # 0.5 10*3/uL (0.1-1.0); MONO % 6.5 % (3.0-9.0); NEUT # 4.6 10*3/uL (2.3-7.9); NEUT % 56.1 % (47.0-73.0); PLATELET COUNT AUTOMATED 166 10*3/uL (130-400); RED BLOOD COUNT 2.89 10*6/uL (4.10-5.10); WHITE BLOOD COUNT 8.1 10*3/uL (4.8-10.8)
[2016-11-10 19:16] LABS: BILIRUBIN, TOTAL 0.2 mg/dl (0.2-1.0); POTASSIUM 4.3 mmol/L (3.5-5.1); TOTAL PROTEIN 6.5 gm/dL (6.4-8.2)
[2016-11-10 19:33] VITALS: BP 131/78
[2016-11-10 20:06] LABS: BILIRUBIN NEGATIVE (NEGATIVE); BLOOD NEGATIVE (NEGATIVE); CLARITY CLEAR (CLEAR); COLOR YELLOW (YELLOW); GLUCOSE NEGATIVE (NEGATIVE); KETONE NEGATIVE (NEGATIVE); LEUKO ESTERASE 1+ (NEGATIVE); NITRITE NEGATIVE (NEGATIVE); PH 5.5 (5.0-9.0); PROTEIN NEGATIVE (NEGATIVE); SPECIFIC GRAVITY <= 1.005 (1.005-1.030); UROBILINOGEN 0.2 E.U./dl (0.2-1.0)
[2016-11-10 20:13] LABS: BACTERIA TRACE; EPITHELIAL CELLS 15-20; URINE REFLEX COMMENT YES (NO)
[2016-11-10] MEDS ORDERED: CIPRO250 MG PO (20:14)
== END 2016-11-10 20:24 | disposition other institution (70) ==
LOC: ED 18:33
PROVIDERS: Registered Nurse
DX: S90.01XA Contusion of right ankle, initial encounter (principal); S70.01XA Contusion of right hip, initial encounter; N18.3 Chronic kidney disease, stage 3 (moderate); N30.00 Acute cystitis without hematuria; Z79.899 Other long term (current) drug therapy; Z88.1 Allergy status to other antibiotic agents; Z88.0 Allergy status to penicillin; Z88.6 Allergy status to analgesic agent; Z88.8 Allergy status to other drugs, medicaments and biological substances; W06.XXXA Fall from bed, initial encounter; Y93.89 Activity, other specified; Y92.122 Bedroom in nursing home as the place of occurrence of the external cause; Y99.8 Other external cause status

== ENCOUNTER → 2017-08-22 | Day surgery (SDC) | payer MEDICARE ==
[~2017-08-22] VITALS: Ht 160 cm; Wt 85.3 kg
[~2017-08-22] MED LIST changes: +CIPRO250 MG PO
--- NOTE | ~2017-08-22 | O ---
[place], [place] OPERATIVE NOTE NAME: GISELE CHAO V UNIT #: [id number] ROOM: DOCTOR: ERNIE LANDERS MD BIRTHDATE: [birth year] DOS: 08/22/2017 GASTROENDOSCOPIC REPORT HISTORY OF PRESENT ILLNESS: A 77-year-old patient with a chief complaint of anemia, drop in H and H of 8 and 27. ALLERGIES: RIBOFLAVIN, NIACIN, PENICILLIN, AUGMENTIN, B6, and PENICILLIN. FAMILY HISTORY: Noncontributory. PAST SURGICAL HISTORY: Pacer placement. PAST MEDICAL HISTORY: Hypertension, neuropathy, diabetes mellitus, gastroesophageal reflux, early Alzheimer. PROCEDURE: Today's procedure part of investigation of anemia is panendoscopy plus biopsy. PREMEDICATION: Propofol. SCOPE: Olympus forward-viewing gastroscope Q10 video. REPORT: After putting the patient on left side of his application of lubricant to the scope, the scope was introduced. Thereafter, under direct visualization, advanced through the length of esophagus without difficulty. Esophagus, cervical, thoracic distally and carefully examined. Gastric pouch was entered. Evidence of mild gastritis seen. There is no evidence of bleeding. The gastric pouch, duodenal bulb, second and third part within normal limits. The patient extubated, tolerated procedure well. IMPRESSION: Gastritis. This is not the cause of her anemia; however, I have reviewed her medication list at home. She has been also on pantoprazole. PLAN AND DISCUSSION: We are going to continue with the pantoprazole. If family agrees, this patient needs a colonoscopy and if they do not, conservative management would suffice. [place], [place] OPERATIVE NOTE NAME: GISELE CHAO V UNIT #: [id number] ROOM: DOCTOR: ERNIE LANDERS MD BIRTHDATE: [birth year] ERNIE LANDERS MD CM:OPRECORD:OPERATIVE NOTE [id number] PRAKASH LANDERS MD 08/22/17 1720 interface
[2017-08-22 14:32] VITALS: BP 154/76
[2017-08-22 16:48] VITALS: BP 178/61
[2017-08-22 17:03] VITALS: BP 98/63
[2017-08-22 17:18] VITALS: BP 132/70
== END | disposition home or self-care (01) ==
LOC: SDC 08-18 10:15
DX: K29.50 Unspecified chronic gastritis without bleeding (principal); I10 Essential (primary) hypertension; E78.5 Hyperlipidemia, unspecified; E11.40 Type 2 diabetes mellitus with diabetic neuropathy, unspecified; K21.9 Gastro-esophageal reflux disease without esophagitis; G89.4 Chronic pain syndrome; G30.9 Alzheimer's disease, unspecified; F02.80 Dementia in other diseases classified elsewhere, unspecified severity, without behavioral disturbance, psychotic disturbance, mood disturbance, and anxiety; Z95.0 Presence of cardiac pacemaker; Z88.0 Allergy status to penicillin; Z88.8 Allergy status to other drugs, medicaments and biological substances; Z79.899 Other long term (current) drug therapy; Z98.890 Other specified postprocedural states; Z86.73 Personal history of transient ischemic attack (TIA), and cerebral infarction without residual deficits; Z87.19 Personal history of other diseases of the digestive system

== ENCOUNTER 2018-03-23 19:26 | Emergency (ER) | payer MEDICARE, OTHER ==
[~2018-03-23] VITALS: Wt 87.5 kg
--- NOTE | ~2018-03-23 | EKG ---
[place], [place] ELECTROCARDIOGRAM REPORT NAME: GISELE CHAO V UNIT #: [id number] ROOM: DOCTOR: EPIPHANY DRAFT REPORT BIRTHDATE: [birth year] [facility] Test Date: 2018-03-23 Test Time: 20:37:44 Pat Name: GISELE CHAO Department: ER Room: Gender: F Post Doctoral Researcher: Bharat Flores : 1940 Requested By: LAVERN LIZ Order Number: [id number] Reading MD: Oxana Jasso MD Measurements Intervals [place] Rate: 78 P: 26 ME: 256 QRS: -8 QRSD: 110 T: 82 QT: 424 QTc: 484 Interpretive Statements Sinus rhythm Prolonged ME interval Low voltage, precordial leads LVH with IVCD and secondary repol abnrm Electronically Signed On 03-26-2018 14:04:38 PST by Oxana Jasso MD CM:EKGRPT:ELECTROCARDIOGRAM REPORT [id number] LAVERN LIZ EPIPHANY DRAFT REPORT LAVERN LIZ
[2018-03-23 20:16] LABS: BASO % 0.3 % (0.0-1.0); EOS # 0.1 10*3/uL (0.0-0.4); EOS % 0.8 % (1.0-4.0); HEMATOCRIT 36.9 % (37.0-47.0); HEMOGLOBIN 11.7 g/dl (12.0-16.0); LYMPH # 3.8 10*3/uL (1.3-4.4); LYMPH % 41.6 % (27.0-41.0); MEAN CELL VOLUME 103.4 fl (81.0-99.0); MEAN CORPUSCULAR HGB 32.8 pg (27.0-31.0); MEAN CORPUSCULAR HGB CONC 31.7 g/dl (33.0-37.0); MEAN PLATELET VOLUME 10.3 fl (9.6-12.3); MONO # 0.2 10*3/uL (0.1-1.0); MONO % 2.4 % (3.0-9.0); NEUT % 54.5 % (47.0-73.0); PLATELET COUNT AUTOMATED 160 10*3/uL (130-400); RED BLOOD COUNT 3.57 10*6/uL (4.10-5.10); RED CELL DISTRI WIDTH 13.3 % (0-14.5); WHITE BLOOD COUNT 9.1 10*3/uL (4.8-10.8)
[2018-03-23 20:26] LABS: ACT PARTIAL THROMBO TIME 20.3 SECONDS (20.8-31.5); INTERNATIONAL NORM RATIO 0.9 (2.0-3.5)
[2018-03-23 20:34] LABS: ALBUMIN 3.8 gm/dl (3.1-4.5); ALKALINE PHOSPHATASE 116 U/L (45-117); BUN 37 mg/dl (7-24); CHLORIDE 108 mmol/L (98-107); CREATININE 1.18 mg/dL (0.55-1.02); LIPASE 308 U/L (73-393); POTASSIUM 4.1 mmol/L (3.5-5.1); SGOT/AST 22 IU/L (3-35); SGPT/ALT 33 U/L (12-78); SODIUM 143 mmol/L (136-145); TOTAL PROTEIN 7.7 gm/dL (6.4-8.2)
[2018-03-23 20:40] LABS: TROPONIN I < 0.015 ng/ml (<0.045)
[2018-03-23 21:01] VITALS: BP 184/100
[2018-03-23 21:18] LABS: BILIRUBIN NEGATIVE (NEGATIVE); BLOOD NEGATIVE (NEGATIVE); CLARITY CLEAR (CLEAR); COLOR YELLOW (YELLOW); GLUCOSE 1+ (NEGATIVE); KETONE NEGATIVE (NEGATIVE); LEUKO ESTERASE NEGATIVE (NEGATIVE); NITRITE NEGATIVE (NEGATIVE); UROBILINOGEN 0.2 E.U./dl (0.2-1.0)
[2018-03-23 21:25] LABS: RBC 0-2 rbc/hpf (0-2); WBC 0-2 wbc/hpf (0-5)
== END 2018-03-23 23:28 | disposition home or self-care (01) ==
LOC: ED 19:26
PROVIDERS: Nurse Practitioner Family
DX: K56.41 Fecal impaction (principal); I25.10 Atherosclerotic heart disease of native coronary artery without angina pectoris; I25.2 Old myocardial infarction; E11.22 Type 2 diabetes mellitus with diabetic chronic kidney disease; N18.9 Chronic kidney disease, unspecified; Z88.1 Allergy status to other antibiotic agents; Z88.0 Allergy status to penicillin; Z88.5 Allergy status to narcotic agent; Z88.8 Allergy status to other drugs, medicaments and biological substances; Z79.4 Long term (current) use of insulin; Z90.710 Acquired absence of both cervix and uterus; Z90.49 Acquired absence of other specified parts of digestive tract

== ENCOUNTER 2018-12-20 00:06 | Emergency (ER) | payer MEDICARE, MEDICAID ==
[~2018-12-20 00:06] MED LIST changes: -FERREX 150150 MG PO; +FERROUS SULFAT325 MG PO; -FUROSEMIDE40 MG PO; -HYDRALAZINE HC100 MG PO; +HYDRALAZINE10 MG PO; -OYSTER CALCIUM500 M1 PO; +OYSTER SHELL 51 EACH PO
[2018-12-20 00:40] LABS: HEMATOCRIT 42.2 % (37.0-47.0); HEMOGLOBIN 13.7 g/dl (12.0-16.0); MEAN CELL VOLUME 103.4 fl (81.0-99.0); MEAN CORPUSCULAR HGB 33.6 pg (27.0-31.0); MEAN CORPUSCULAR HGB CONC 32.5 g/dl (33.0-37.0); MEAN PLATELET VOLUME 10.1 fl (9.6-12.3); PLATELET COUNT AUTOMATED 195 10*3/uL (130-400); RED BLOOD COUNT 4.08 10*6/uL (4.10-5.10); RED CELL DISTRI WIDTH 13.1 % (0-14.5); WHITE BLOOD COUNT 18.3 10*3/uL (4.8-10.8)
[2018-12-20 00:51] LABS: ACT PARTIAL THROMBO TIME 21.7 SECONDS (20.0-32.1); INTERNATIONAL NORM RATIO 0.9 (2.0-3.5)
[2018-12-20 00:56] LABS: ALBUMIN 3.6 gm/dl (3.1-4.5); CREATININE 1.42 mg/dL (0.55-1.02); POTASSIUM 4.3 mmol/L (3.5-5.1); TOTAL PROTEIN 7.7 gm/dL (6.4-8.2)
[2018-12-20 01:02] LABS: ATYPICAL LYMPHS 1 % (0-0); TOTAL CELLS COUNTED 100 #CELLS
[2018-12-20 01:03] LABS: PLATELET SUFFICIENCY NORMAL (NORMAL)
[2018-12-20 01:07] LABS: TROPONIN I 1.65 ng/ml (<0.045)
[2018-12-20 01:38] VITALS: BP 166/72
== END 2018-12-20 02:20 | disposition short-term general hospital (02) ==
LOC: ED 00:06
PROVIDERS: Emergency Medicine Emergency Medical Services
DX: I63.9 Cerebral infarction, unspecified (principal); I25.10 Atherosclerotic heart disease of native coronary artery without angina pectoris; E11.22 Type 2 diabetes mellitus with diabetic chronic kidney disease; N18.9 Chronic kidney disease, unspecified; Z88.0 Allergy status to penicillin; Z88.1 Allergy status to other antibiotic agents; Z88.8 Allergy status to other drugs, medicaments and biological substances; Z88.6 Allergy status to analgesic agent; Z79.899 Other long term (current) drug therapy; Z79.4 Long term (current) use of insulin

== ENCOUNTER 2019-01-07 09:46 | Emergency (ER) | payer MEDICARE, MEDICAID ==
[~2019-01-07] VITALS: Ht 152.4 cm; Wt 81.6 kg
[2019-01-07 10:21] LABS: HEMATOCRIT 36.3 % (37.0-47.0); HEMOGLOBIN 11.9 g/dl (12.0-16.0); MEAN CELL VOLUME 103.7 fl (81.0-99.0); MEAN CORPUSCULAR HGB CONC 32.8 g/dl (33.0-37.0); MEAN PLATELET VOLUME 10.2 fl (9.6-12.3); PLATELET COUNT AUTOMATED 193 10*3/uL (130-400); RED CELL DISTRI WIDTH 13.2 % (0-14.5); WHITE BLOOD COUNT 10.1 10*3/uL (4.8-10.8)
[2019-01-07] MEDS ORDERED: MYRBETRIQ50 M1 PO (10:28)
[2019-01-07] MEDS ORDERED: LATANOPROST2.5 ML IO (10:30)
[2019-01-07 10:34] LABS: ALKALINE PHOSPHATASE 111 U/L (45-117); BUN 27 mg/dl (7-24); CHLORIDE 102 mmol/L (98-107); CREATININE 0.98 mg/dL (0.55-1.02); SGOT/AST 18 IU/L (3-35); SGPT/ALT 27 U/L (12-78); SODIUM 135 mmol/L (136-145); TOTAL PROTEIN 6.5 gm/dL (6.4-8.2)
[2019-01-07 10:45] LABS: TOTAL CELLS COUNTED 100 #CELLS
[2019-01-07 10:46] LABS: PLATELET SUFFICIENCY NORMAL (NORMAL)
[2019-01-07 11:23] LABS: BILIRUBIN NEGATIVE (NEGATIVE); BLOOD TRACE-INTACT (NEGATIVE); CLARITY SL CLOUDY (CLEAR); COLOR YELLOW (YELLOW); GLUCOSE 2+ (NEGATIVE); KETONE NEGATIVE (NEGATIVE); LEUKO ESTERASE 2+ (NEGATIVE); NITRITE NEGATIVE (NEGATIVE); UROBILINOGEN 0.2 E.U./dl (0.2-1.0)
[2019-01-07 11:37] LABS: BACTERIA 3+; WBC 21-30 wbc/hpf (0-5)
[2019-01-07] MEDS ORDERED: CIPRO250 MG PO (14:00)
[2019-01-07 14:55] VITALS: BP 145/60
== END 2019-01-07 15:02 | disposition other institution (70) ==
LOC: ED 09:46
PROVIDERS: Nurse Practitioner Family
DX: N39.0 Urinary tract infection, site not specified (principal); I10 Essential (primary) hypertension; R11.2 Nausea with vomiting, unspecified; R42 Dizziness and giddiness; Z88.0 Allergy status to penicillin; Z88.1 Allergy status to other antibiotic agents; Z88.6 Allergy status to analgesic agent; Z88.8 Allergy status to other drugs, medicaments and biological substances; Z79.899 Other long term (current) drug therapy; Z86.73 Personal history of transient ischemic attack (TIA), and cerebral infarction without residual deficits

== ENCOUNTER 2019-01-14 20:32 | Inpatient (IN) | payer MEDICARE, MEDICAID ==
[~2019-01-14] VITALS: Ht 160 cm; Wt 73.2 kg
[~2019-01-14 20:32] MED LIST changes: +LATANOPROST2.5 ML IO; +MYRBETRIQ50 M1 PO
[2019-01-14 20:39] VITALS: BP 164/73
[2019-01-14 21:00] VITALS: BP 140/66
[2019-01-14 21:07] LABS: HEMATOCRIT 35.8 % (37.0-47.0); HEMOGLOBIN 11.7 g/dl (12.0-16.0); MEAN CELL VOLUME 102.3 fl (81.0-99.0); MEAN CORPUSCULAR HGB 33.4 pg (27.0-31.0); MEAN CORPUSCULAR HGB CONC 32.7 g/dl (33.0-37.0); MEAN PLATELET VOLUME 10.7 fl (9.6-12.3); PLATELET COUNT AUTOMATED 159 10*3/uL (130-400); RED CELL DISTRI WIDTH 13.3 % (0-14.5)
[2019-01-14 21:22] LABS: ALBUMIN 2.8 gm/dl (3.1-4.5); ALKALINE PHOSPHATASE 102 U/L (45-117); BUN 20 mg/dl (7-24); CHLORIDE 102 mmol/L (98-107); CREATININE 1.07 mg/dL (0.55-1.02); SGOT/AST 10 IU/L (3-35); SGPT/ALT 19 U/L (12-78); SODIUM 136 mmol/L (136-145); TOTAL PROTEIN 6.6 gm/dL (6.4-8.2)
[2019-01-14 21:30] VITALS: BP 142/69
[2019-01-14 21:40] LABS: BASOPHILS 1 % (0-1); TOTAL CELLS COUNTED 100 #CELLS
[2019-01-14 21:41] LABS: PLATELET SUFFICIENCY NORMAL (NORMAL)
--- NOTE | 2019-01-14 22:30 | NUR ---
PATIENT HAS A PATCH TO THUAN FROM THE SHELTER THAT IS LABELED "DO NOT REMOVE".
--- NOTE | 2019-01-14 23:20 | NUR ---
Time: 2319 A 78 year old F admitted to under services of PRAKASH LAM MD. Pt. arrived via stretcher from ER. Chief complaint: POSITIVE BLOOD CULTURES AND ABDOMINAL PAIN. AMAN MELENDEZ
[2019-01-15] VITALS: BP 153/78
--- NOTE | 2019-01-15 00:04 | NUR ---
DR. CHAO CONTACTED IN REGARDS TO ADMISSION, NEW ORDERS RECIEVED.
[2019-01-15] MEDS ORDERED: ALBUTEROL2.5 MG/0.5 NEB (04:43)
[2019-01-15] MEDS ORDERED: LEVEMIR FL100 UNIT/1 SQ (04:58)
[2019-01-15] MEDS ORDERED: RIVASTIGMINE T4.5 M1 PO (05:00)
[2019-01-15] MEDS ORDERED: ZOFRAN8 M1 PO (05:01)
[2019-01-15] MEDS ORDERED: MEGACE 40400 MG/10 PO (05:01)
[2019-01-15] MEDS ORDERED: PLAVIX75 M1 PO (05:02)
[2019-01-15] MEDS ORDERED: ASPIRIN ADULT L81 MG PO (05:02)
[2019-01-15] MEDS ORDERED: GLYCOLAX119 GM PO (05:03)
[2019-01-15] MEDS ORDERED: COREG25 MG PO (05:04)
[2019-01-15] MEDS ORDERED: MILK OF MA400 MG/5 M PO (05:07)
[2019-01-15] MEDS ORDERED: NITROGLYCERIN0.4 MG SL (05:07)
--- NOTE | 2019-01-15 07:47 | NUR ---
ANSWERING SERVICE WAS NOTIFIED OF DR. REYNOSO CONSULT. RESPONSE OF NOTIFICATION WAS WILL PAGE DOCTOR. AMAN MELENDEZ
[2019-01-15 08:00] VITALS: BP 160/70
--- NOTE | 2019-01-15 09:24 | NUR ---
PT CURRENTLY HAS FENTANYL PATCH OF LEFT UPPER ARM FROM 01/13. START TIME ADJUSTED.
--- NOTE | 2019-01-15 09:29 | NUR ---
PHYSICAL THERAPY Nursing screen received and chart reviewed. Patient is resident at [facility] and is confused at baseline. Recommend PT if decline in functional status presents. Thank you. Darlene Christie,PT,DPT
--- NOTE | 2019-01-15 11:28 | NUR ---
Compound Coating Machine Offbearer in to see patient. 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 She states she gets up and around in a wheelchair. Denies O2. When medically stable she will be discharged to [facility]. store planner following.
[2019-01-15 12:00] VITALS: BP 154/74
--- NOTE | 2019-01-15 12:18 | NUR ---
DR CHAO NOTIFIED OF CT CHEST RESULTS. NO NEW ORDERS
--- NOTE | 2019-01-15 15:24 | NUR ---
Nursing screen received and chart reviewed. 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 Patient is wheelchair dependent at the long term. At this time no further OT indicated. Thank you. Tino Chanel OTR/L
--- NOTE | 2019-01-15 16:07 | NUR ---
BP 180/90 DR CHAO NOTIFIED AND NEW ORDERS RECEIVED FOR CLONIDINE 0.2MG PO X1 NOW
[2019-01-15 16:08] VITALS: BP 180/90
[2019-01-15 16:14] LABS: BILIRUBIN NEGATIVE (NEGATIVE); BLOOD 1+ (NEGATIVE); CLARITY SL CLOUDY (CLEAR); COLOR YELLOW (YELLOW); GLUCOSE NEGATIVE (NEGATIVE); KETONE TRACE (NEGATIVE); LEUKO ESTERASE 3+ (NEGATIVE); NITRITE NEGATIVE (NEGATIVE); UROBILINOGEN 0.2 E.U./dl (0.2-1.0)
[2019-01-15 16:46] LABS: BACTERIA 2+; WBC TNTC wbc/hpf (0-5)
[2019-01-15 19:48] VITALS: BP 110/68
[2019-01-15 20:00] VITALS: BP 121/61
--- NOTE | 2019-01-15 22:47 | NUR ---
HS MEDICATIONS GIVEN TO PT AT THIS TIME. PT RESPIRATIONS EASY AND UNLABORED ON ROOM AIR. NO S/S OF DISTRESS. IV FLUIDS INFUSING PER ORDER. ALL NEEDS CURRENTLY MET. ALL SAFETY MEASURES IN PLACE. CALL LIGHT IN REACH
--- NOTE | 2019-01-15 23:42 | NUR ---
NOTIFIED DR CHAO THAT PT IS C/O PAIN TO RIGHT KNEE. NEW ORDERS RECEIVED FOR TYLENOL 650 MG PO Q6 HOURS PRN FOR PAIN. WILL NOTIFY PATIENT. NOTIFIED NURSE TAKING OVER CARE OF PT.
--- NOTE | 2019-01-15 23:51 | NUR ---
PATIENT MEDICATED WITH PRN TYLENOL FOR C/O 10/10 PAIN IN HER RIGHT KNEE. PATIENT REPOSITIONED AND A PILLOW PLACED UNDER THE RIGHT KNEE FOR COMFORT. WILL MONITOR FOR EFFECTIVENESS.
[2019-01-16] VITALS: BP 151/70
--- NOTE | 2019-01-16 00:45 | NUR ---
PATIENT ASLEEP IN BED. PRN TYLENOL EFFECTIVE. CALL LIGHT WITHIN REACH.
--- NOTE | 2019-01-16 01:48 | NUR ---
24 HR chart check completed.
[2019-01-16 06:03] LABS: HEMATOCRIT 31.3 % (37.0-47.0); MEAN CORPUSCULAR HGB 32.6 pg (27.0-31.0); MEAN CORPUSCULAR HGB CONC 31.9 g/dl (33.0-37.0); MEAN PLATELET VOLUME 10.7 fl (9.6-12.3); PLATELET COUNT AUTOMATED 148 10*3/uL (130-400); RED BLOOD COUNT 3.07 10*6/uL (4.10-5.10); RED CELL DISTRI WIDTH 13.5 % (0-14.5); WHITE BLOOD COUNT 9.2 10*3/uL (4.8-10.8)
[2019-01-16 06:14] LABS: BUN 12 mg/dl (7-24); CHLORIDE 108 mmol/L (98-107); CREATININE 0.68 mg/dL (0.55-1.02); POTASSIUM 3.7 mmol/L (3.5-5.1); SODIUM 138 mmol/L (136-145)
--- NOTE | 2019-01-16 06:30 | NUR ---
PATIENT MEDICATED WITH PRN TYLENOL FOR C/O GENERALIZED DISCOMFORT. WILL MONITOR FOR EFFECTIVENESS.
--- NOTE | 2019-01-16 07:25 | NUR ---
PT AWAKE. BEDSIDE REPORT RECEIVED. PT REPOSITIONED FOR COMFORT. BED LOW. ALARM ON
[2019-01-16 07:26] LABS: BASOPHILS 1 % (0-1); PLATELET SUFFICIENCY NORMAL (NORMAL); TOTAL CELLS COUNTED 100 #CELLS
[2019-01-16 08:01] VITALS: BP 162/73
[2019-01-16 12:00] VITALS: BP 182/82
--- NOTE | 2019-01-16 12:17 | NUR ---
PTS BP IS ELEVATED 182/80 MANUAL[address] CHAO NOTIFIED. ORDERS RECEIVED.
--- NOTE | 2019-01-16 12:22 | NUR ---
24 HR CHART CHECK COMPLETE
--- NOTE | 2019-01-16 13:00 | NUR ---
PO NORVASC ADMINISTERED PER ORDER R/T ELEVATED BP.
[2019-01-16 14:00] VITALS: BP 164/70
--- NOTE | 2019-01-16 14:00 | NUR ---
PTS REPEAT BP 164/70 MANUAL. PT REMAINS ASYMPTOMATIC. CALL REHMAN IN REACH
[2019-01-16 16:00] VITALS: BP 152/57
--- NOTE | 2019-01-16 17:39 | NUR ---
PT C/O BILATERAL KNEE PAIN RATED "HURTS AWFUL BAD." ADMINISTERED PO TYLENOL PER ORDER. WILL MONITOR FOR EFFECTIVENESS. CALL REHMAN IN REACH
--- NOTE | 2019-01-16 18:30 | NUR ---
PT STATES PAIN IS A LITTLE BETTER. PT REPOSITIONED FOR COMFORT. WILL CONTINUE TO MONITOR. FAMILY VISITING AT BEDSIDE. BED LOW
--- NOTE | 2019-01-16 19:25 | NUR ---
PT CONTINUED C/O RIGHT KNEE PAIN. SPOKE TO DR CHAO. ORDER FOR VOLTAREN CREAM RECEIVED.
--- NOTE | 2019-01-16 19:59 | NUR ---
PATIENT LAYING IN BED. PO FLUIDS ENCOURAGED. FAMILY AT BEDSIDE. EXPLAINED TO PATIENT THAT THE DOCTOR ORDERED A CREAM AND RN WILL BRING IT IN SOON PHARMACY SENDS IT TO THE FLOOR. CALL LIGHT WITHIN REACH. BED ALARM ON FOR PATIENT SAFETY.
[2019-01-16 20:00] VITALS: BP 128/65
--- NOTE | 2019-01-16 20:50 | NUR ---
PRN VOLTAREN GEL APPLIED TO RIGHT KNEE FOR C/O 10/10 PAIN. PATIENT REPOSITIONED AND A WARM BLANKET PROVIDED. CALL LIGHT WITHIN REACH.
--- NOTE | 2019-01-16 21:45 | NUR ---
PATIENT LAYING QUIETLY IN BED. RESPIRATIONS EVEN AND UNLABORED. PRN VOLTAREN GEL EFFECTIVE AT HELPING THE PAIN PER PATIENT. CALL LIGHT WITHIN REACH.
[2019-01-17] VITALS: BP 137/54
--- NOTE | 2019-01-17 00:49 | NUR ---
24 HR chart check completed.
[2019-01-17 03:43] VITALS: BP 140/80
--- NOTE | 2019-01-17 03:44 | NUR ---
PATIENT SHORT OF BREATH AFTER LAYING FLAT FOR A BATH. PATIENT SAT BACK UP AND INSTRUCTED TO TAKE DEEP BREATHS. SPO2 100% ON ROOM AIR, TEMP 98.0 ORALLY, PULSE 68, MANUAL BP 140/80, RESPIRATORY RATE 22. AFTER A FEW MINUTES PATIENT STATED SHE FELT MUCH BETTER. WILL CONTINUE TO MONITOR.
--- NOTE | 2019-01-17 04:17 | NUR ---
PATIENT GIVEN PRN TYLENOL FOR C/O RIGHT KNEE PAIN. WILL MONITOR FOR EFFECTIVENESS.
--- NOTE | 2019-01-17 05:00 | NUR ---
PATIENT STATED THE PRN TYLENOL HELPED A LITTLE. PATIENT REPOSITIONED FOR COMFORT.
--- NOTE | 2019-01-17 06:55 | NUR ---
PT SLEEPING. RESPS EASY/REG WITH NO DISTRESS NOTED. REPORT RECEIVED FORM ANSHUL PATEL.
--- NOTE | 2019-01-17 07:06 | NUR ---
DR. CHAO NOTIFIED THAT PATIENT IS HAVING A HARD TIME SWALLOWING PILLS. STATED THAT IS NORMAL AFTER AN INFARCT.
--- NOTE | 2019-01-17 07:25 | NUR ---
DR CHAO IN TO SEE PT. INFORMED OF DIFFICULTY SWALLOWING. MODIFIED SWALLOW ORDERED
--- NOTE | 2019-01-17 07:45 | NUR ---
LAB CALLED WITH CRITICAL BLOOD CULTURE RESULTS. ATTEMPTED TO REACH DR CHAO AND SHE WAS WITH A PATIENT. SPOKE TO HER AT 0757. NO NEW ORDERS
[2019-01-17 08:00] VITALS: BP 185/71
--- NOTE | 2019-01-17 08:15 | NUR ---
24 HR CHART CHECK COMPLETE
--- NOTE | 2019-01-17 08:55 | NUR ---
PT AWAKE. ASSESSMENT COMPLETE. PT C/O RIGHT KNEE PAIN. ADMINISTERED DICLOFENAC GEL RUB. WILL MONITOR FOR EFFECTIVENESS. PT UNABLE TO RATE PAIN. BED ALARM ON
--- NOTE | 2019-01-17 09:45 | NUR ---
Patient resting quietly with no c/o discomfort. Respirations easy and regular. Vital signs stable. No overt distress. JEREMY NEGRO
--- NOTE | 2019-01-17 14:20 | NUR ---
PT C/O GENERALIZED PAIN. PT STATES "I'M REALLY HURTING." ADMINISTERED PO TYLENOL PER ORDER. WILL MONITOR FOR EFFECTIVENESS. CALL REHMAN IN REACH. FAMILY AT THE BEDSIDE
[2019-01-17 16:00] VITALS: BP 166/88
[2019-01-17 20:00] VITALS: BP 134/69
[2019-01-18] VITALS: BP 157/64
--- NOTE | 2019-01-18 00:21 | NUR ---
PATIENT COMPLAINS OF KNEE PAIN. MEDICATED PER ORDER. WILL CONTINUE TO MONITOR FOR RELIEF. MILD DIFFICULTY SWALLOWING. VOICES NO OTHER CONCERNS AT THIS TIME. RESTING IN BED. CALL LIGHT WITIN REACH. VITALS STABLE.
--- NOTE | 2019-01-18 01:20 | NUR ---
24 HR chart check completed.
[2019-01-18 08:00] VITALS: BP 165/70
--- NOTE | 2019-01-18 08:17 | NUR ---
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 Patient is ok to return when medically stable for discharge.
--- NOTE | 2019-01-18 08:30 | NUR ---
WHILE PASSING MEDS TO PT, CRUSHED IN APPLESAUCE. PT BEGAN TO CHOKE. PT WAS COUGHING AND BLECHING AND WAS BREATHING HEAVY. SHE WAS ABLE TO THEN SWALLOW, AND BREATHING AND SPEECH NORMALIZED. PT TO HAVE BARIUM SWALLOW THIS AFTERNOON. PT STATES SHE DOES THIS AT [facility]. WILL MONITOR
--- NOTE | 2019-01-18 09:00 | NUR ---
Therapeutic Recreation Director in to see patient. Discussed modified barium swallow ordered for today. No new needs or request. 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
[2019-01-18 12:00] VITALS: BP 182/86
--- NOTE | 2019-01-18 14:25 | NUR ---
SPEECH PATHOLOGY Modified barium swallow completed as per orders to rule out aspiration. Patient has been having difficulty swallowing. Medical history is significant for COPD, CVA, HTN, [place], IDDM. She receives a regular diet and thin liquid. Patient was cooperative and able to follow commands but displayed impairment with memory and was unable to state her specific problems swallowing or how long they have been occurring. Oral musculature eval. revealed edentulous status as well as mildly reduced lingual/labial strength and coordination. Volitional cough was weak and volitional swallow was delayed. She was assessed with puree, solids and thin liquid taken by cup and straw. She was slow overall with mastication, propulsion of bolus and swallow initiation but once her swallow triggered, there was no penetration or aspiration of any consistency and no pharyngeal residue. Recommend patient remain on present diet but order softer items due to edentulous status. Also recommend safe swallow precautions such as upright positioning, small bites/sips and alternating consistencies. Short term follow up is recommended to ensure safety with diet. Results and inocencio. were shared with patient and her nurse and they verbalized understanding. Dictated report to follow. Thank you for this referral. ARLENE SALDANA MSCCC-INTRANET SUPPORT
[2019-01-18 16:00] VITALS: BP 172/88
--- NOTE | 2019-01-18 18:02 | NUR ---
DR CHAO CALLED RE: PAIN TO LEFT KNEE, PT REQUESTED DEQUAN SQUIRES. ORDERS RECEIVED. DR CHAO NOTIFIED OF PT PASSING MOD BARIUM SWALLOW YET, SHE STILL CHOKING ON FOODS/LIQUIDS.
[2019-01-18 20:00] VITALS: BP 174/70
--- NOTE | 2019-01-18 21:26 | NUR ---
VOLTAREN GEL APPLIED TO BILATERAL KNEES FOR PAIN. WILL MONITOR FOR EFFECTIVENESS. PATIENT TOOK PILLS IN PUDDING WITHOUT DIFFICULTY. WILL CONTINUE TO MONITOR.
[2019-01-19] VITALS: BP 179/77
[2019-01-19 06:03] LABS: BUN 8 mg/dl (7-24); CREATININE 0.73 mg/dL (0.55-1.02)
[2019-01-19 08:00] VITALS: BP 132/78
[2019-01-19] MEDS ORDERED: 'CLONIDINE0.1 MG PO (08:30)
[2019-01-19] MEDS ORDERED: VOLTAREN100 GM T (08:30)
[2019-01-19] MEDS ORDERED: SEPTDS PO (08:32)
[2019-01-19] MEDS ORDERED: KEPPRA500 MG PO (08:38)
[2019-01-19] MEDS ORDERED: NORVASC5 MG PO (08:38)
--- NOTE | 2019-01-19 09:22 | NUR ---
MEDICATED WITH PRN PO TYLENOL FOR RIGHT KNEE PAIN, ALSO APPLIED VOLTAREN GEL AND MUSCLE RUB CREAM TO BILATERAL KNEES.
--- NOTE | 2019-01-19 10:08 | NUR ---
SPEECH PATHOLOGY Patient was seen for swallowing treatment this date. She was sitting upright in bed, alert and cooperative. Yesterday's MBS showed no penetration, aspiration or pharyngeal residue. When asked how she has been doing with swallowing, patient stated " I have been choking." Her breakfast tray was present and she was assisted with the meal. Her tray consisted of applesauce, yogurt and pudding. She was fed these items and displayed a slow but functional swallow with no cough, residue or wet vocal quality. At times she made faces as if she was having trouble, but when asked if she was ok, she said "yes." She took thin liquids by straw with no overt difficulty. She also stated that she has been having trouble with her meds. She was observed taking multiple medications. She took them in pudding (as she reported she does not like applesauce) and was able to swallow all pills with no coughing or residue. Again, she made faces at times when swallowing but when asked if she was ok, she said "yes." Patient is tolerating food, liquid and pills. Recommend continued use of safe swallow precautions such as upright positioning, small amounts and alternating consistencies. Continue plan. ARLENE SALDANA MSCCC-BEREAVEMENT COUNSELOR
--- NOTE | 2019-01-19 10:18 | NUR ---
patient is discharged to return to [facility]; transportation scheduled for 12:00 noon with [place]. NH, nursing/tree warden notified. DC information all faxed. Attempted to contact son, unable to contact/left voicemail.
--- NOTE | 2019-01-19 11:34 | NUR ---
PREPARING PATIENT FOR DISCHARGE TO [facility] AT 1200 BY [facility].
[2019-01-19 12:00] VITALS: BP 186/90
--- NOTE | 2019-01-19 12:23 | NUR ---
REPORT CALLED TO RECEIVING NURSE AT [facility].
--- NOTE | 2019-01-19 12:30 | NUR ---
PATIENT DISCHARGED TO [facility] BY AMBULANCE SERVICE.
== END 2019-01-19 12:15 | disposition other institution (70) | DRG 177 ==
LOC: ED 20:32 → 4E 22:15 → EDHOLD 22:15 → 4E 23:22
PROVIDERS: Emergency Medicine Emergency Medical Services; Internal Medicine; ADMIT Internal Medicine
PROC: BD11YZZ Fluoroscopy of Esophagus using Other Contrast (ICD-10-PCS; principal; 2019-01-18)
DX: J69.0 Pneumonitis due to inhalation of food and vomit (principal); N17.0 Acute kidney failure with tubular necrosis; R78.81 Bacteremia; B96.4 Proteus (mirabilis) (morganii) as the cause of diseases classified elsewhere; G89.4 Chronic pain syndrome; M19.90 Unspecified osteoarthritis, unspecified site; M48.00 Spinal stenosis, site unspecified; G40.909 Epilepsy, unspecified, not intractable, without status epilepticus; N30.90 Cystitis, unspecified without hematuria; G30.1 Alzheimer's disease with late onset; N18.9 Chronic kidney disease, unspecified; I12.9 Hypertensive chronic kidney disease with stage 1 through stage 4 chronic kidney disease, or unspecified chronic kidney disease; E11.22 Type 2 diabetes mellitus with diabetic chronic kidney disease; B95.7 Other staphylococcus as the cause of diseases classified elsewhere; F02.80 Dementia in other diseases classified elsewhere, unspecified severity, without behavioral disturbance, psychotic disturbance, mood disturbance, and anxiety; I25.10 Atherosclerotic heart disease of native coronary artery without angina pectoris; Z95.5 Presence of coronary angioplasty implant and graft; Z79.4 Long term (current) use of insulin; Z86.73 Personal history of transient ischemic attack (TIA), and cerebral infarction without residual deficits; Z88.0 Allergy status to penicillin; Z88.1 Allergy status to other antibiotic agents; Z88.8 Allergy status to other drugs, medicaments and biological substances; Z88.5 Allergy status to narcotic agent; Z90.710 Acquired absence of both cervix and uterus; Z90.49 Acquired absence of other specified parts of digestive tract; Z79.899 Other long term (current) drug therapy

== ENCOUNTER 2019-08-13 22:12 | Emergency (ER) | payer MEDICARE, MEDICAID ==
[~2019-08-13] VITALS: Ht 167.6 cm; Wt 73.0 kg
[~2019-08-13 22:12] MED LIST changes: +'CLONIDINE0.1 MG PO; +ALBUTEROL2.5 MG/0.5 NEB; +ASPIRIN ADULT L81 MG PO; +GLYCOLAX119 GM PO; +KEPPRA500 MG PO; +LEVEMIR FL100 UNIT/1 SQ; +MEGACE 40400 MG/10 PO; +MILK OF MA400 MG/5 M PO; +NITROGLYCERIN0.4 MG SL; +NORVASC5 MG PO; +PLAVIX75 M1 PO; +RIVASTIGMINE T4.5 M1 PO; +SEPTDS PO; +VOLTAREN100 GM T; +ZOFRAN8 M1 PO
[2019-08-13 22:50] LABS: HEMATOCRIT 38.7 % (37.0-47.0); MEAN CELL VOLUME 96.3 fl (81.0-99.0); MEAN CORPUSCULAR HGB 30.6 pg (27.0-31.0); MEAN CORPUSCULAR HGB CONC 31.8 g/dl (33.0-37.0); MEAN PLATELET VOLUME 10.5 fl (9.6-12.3); PLATELET COUNT AUTOMATED 209 10*3/uL (130-400); RED BLOOD COUNT 4.02 10*6/uL (4.10-5.10); WHITE BLOOD COUNT 11.8 10*3/uL (4.8-10.8)
[2019-08-13 23:05] LABS: ALBUMIN 3.3 gm/dl (3.1-4.5); ALKALINE PHOSPHATASE 114 U/L (45-117); BUN 29 mg/dl (7-24); CHLORIDE 107 mmol/L (98-107); CREATININE 1.03 mg/dL (0.55-1.02); POTASSIUM 3.6 mmol/L (3.5-5.1); SGOT/AST 13 IU/L (3-35); SGPT/ALT 23 U/L (12-78); SODIUM 140 mmol/L (136-145); TOTAL PROTEIN 7.3 gm/dL (6.4-8.2)
[2019-08-13 23:11] LABS: ATYPICAL LYMPHS 2 % (0-0); PLATELET SUFFICIENCY NORMAL (NORMAL); TOTAL CELLS COUNTED 100 #CELLS
[2019-08-13 23:50] LABS: BILIRUBIN NEGATIVE (NEGATIVE); CLARITY CLEAR (CLEAR); COLOR YELLOW (YELLOW); GLUCOSE TRACE (NEGATIVE); KETONE NEGATIVE (NEGATIVE)
[2019-08-13 23:51] LABS: BLOOD TRACE-INTACT (NEGATIVE); LEUKO ESTERASE 1+ (NEGATIVE); NITRITE NEGATIVE (NEGATIVE); UROBILINOGEN 0.2 E.U./dl (0.2-1.0)
[2019-08-14 00:06] LABS: BACTERIA 2+; WBC 21-30 wbc/hpf (0-5); YEAST TRACE
[2019-08-14] MEDS ORDERED: MACROBID100 M1 PO (01:45)
== END 2019-08-14 00:54 | disposition other institution (70) ==
LOC: ED 22:12
PROVIDERS: Internal Medicine
DX: N39.0 Urinary tract infection, site not specified (principal); I25.10 Atherosclerotic heart disease of native coronary artery without angina pectoris; I12.9 Hypertensive chronic kidney disease with stage 1 through stage 4 chronic kidney disease, or unspecified chronic kidney disease; E11.22 Type 2 diabetes mellitus with diabetic chronic kidney disease; N18.9 Chronic kidney disease, unspecified; E78.5 Hyperlipidemia, unspecified; F41.9 Anxiety disorder, unspecified; I25.2 Old myocardial infarction; M19.90 Unspecified osteoarthritis, unspecified site; Z88.8 Allergy status to other drugs, medicaments and biological substances; Z88.0 Allergy status to penicillin; Z88.5 Allergy status to narcotic agent; Z79.899 Other long term (current) drug therapy; Z79.4 Long term (current) use of insulin; Z79.2 Long term (current) use of antibiotics; Z79.82 Long term (current) use of aspirin; Z90.49 Acquired absence of other specified parts of digestive tract; Z90.710 Acquired absence of both cervix and uterus

== ENCOUNTER 2019-11-20 11:41 | Emergency (ER) | payer MEDICARE, MEDICAID ==
[~2019-11-20 11:41] MED LIST changes: +MACROBID100 M1 PO
[2019-11-20 11:43] VITALS: BP 110/54
== END 2019-11-20 12:30 | disposition home or self-care (01) ==
LOC: ED 11:41
DX: S03.00XA Dislocation of jaw, unspecified side, initial encounter (principal); J44.9 Chronic obstructive pulmonary disease, unspecified; I10 Essential (primary) hypertension; E11.9 Type 2 diabetes mellitus without complications; F41.9 Anxiety disorder, unspecified; I25.2 Old myocardial infarction; E78.00 Pure hypercholesterolemia, unspecified; Z86.73 Personal history of transient ischemic attack (TIA), and cerebral infarction without residual deficits; Z88.0 Allergy status to penicillin; Z88.5 Allergy status to narcotic agent; Z88.8 Allergy status to other drugs, medicaments and biological substances; Z79.899 Other long term (current) drug therapy; X58.XXXA Exposure to other specified factors, initial encounter; Y93.89 Activity, other specified; Y92.89 Other specified places as the place of occurrence of the external cause; Y99.8 Other external cause status

== ENCOUNTER 2021-10-05 10:12 | Emergency (ER) | payer MEDICARE, MEDICAID ==
[~2021-10-05] VITALS: Wt 69.9 kg
[~2021-10-05 10:12] MED LIST changes: +AMLODIPINE BESYL5 MG PO; +BISACODYL5 MG PO; +CARAFATE1 GM PO; +CLONIDINE HCL0.1 MG PO; +DULCOLAX10 M1 R; +FLEET MINERAL133 ML R; +GLUCAGON EMERGEN1 M1 IM; +LANTUS SOL100 UNIT/1 SC; +LATANOPROST2.5 ML OU; +MILK OF MA400 MG/51 PO; +MIRALAX POWDER17 G1 PO; +MUSCLE RUB CREA35 GM T; +MYLANTA MAXIMU355 M1 PO; +NITROSTAT0.4 MG SL; +NOVOLOG FL100 UNIT/2 SC; +OCUVITE EYE +1 EACH PO; +OYSTER SHELL 51 EAC1 PO; +REGLAN5 MG PO; +TIMOLOL 5 ML5 ML OPH; +TUSSIN COU15 MG/5 ML PO; +VITAMIN D3125 MCG PO
[2021-10-05 11:07] LABS: HEMATOCRIT 33.3 % (37.0-47.0); MEAN CELL VOLUME 98.2 fl (81.0-99.0); MEAN CORPUSCULAR HGB 30.1 pg (27.0-31.0); MEAN CORPUSCULAR HGB CONC 30.6 g/dl (33.0-37.0); MEAN PLATELET VOLUME 11.2 fl (9.6-12.3); PLATELET COUNT AUTOMATED 121 10*3/uL (130-400); RED BLOOD COUNT 3.39 10*6/uL (4.10-5.10); RED CELL DISTRI WIDTH 15.1 % (0-14.5); WHITE BLOOD COUNT 8.8 10*3/uL (4.8-10.8)
[2021-10-05 11:09] LABS: MANUAL DIFF REFLEX YES
[2021-10-05 11:19] LABS: ACT PARTIAL THROMBO TIME 23.4 SECONDS (20.0-32.1)
[2021-10-05 11:22] LABS: BUN 26 mg/dl (7-24); CHLORIDE 115 mmol/L (98-107); CREATININE 0.99 mg/dL (0.55-1.02); POTASSIUM 4.4 mmol/L (3.5-5.1); SODIUM 148 mmol/L (136-145)
[2021-10-05 11:27] LABS: CPK 44 U/L (26-192)
[2021-10-05 11:28] LABS: PLATELET SUFFICIENCY NORMAL (NORMAL); TOTAL CELLS COUNTED 100 #CELLS
[2021-10-05 12:43] LABS: BILIRUBIN Negative (Negative); BLOOD Negative (Negative); CLARITY Cloudy (Clear); COLOR Yellow (Yellow); GLUCOSE 1+ (Negative); KETONE Negative (Negative); LEUKO ESTERASE 2+ (Negative); NITRITE Negative (Negative); UROBILINOGEN 0.2 E.U./dl (0.0-1.0)
[2021-10-05 12:49] LABS: YEAST 4+
[2021-10-05 12:50] LABS: BACTERIA 4+; EPITHELIAL CELLS 0-2
[2021-10-05] MEDS ORDERED: LEVOFLOXACIN500 MG PO (15:23)
[2021-10-05 15:24] VITALS: BP 128/70
== END 2021-10-05 17:05 ==
LOC: ED 10:12
PROVIDERS: Emergency Medicine
DX: I63.9 Cerebral infarction, unspecified (principal); Z88.0 Allergy status to penicillin; Z88.1 Allergy status to other antibiotic agents; Z88.8 Allergy status to other drugs, medicaments and biological substances; Z79.899 Other long term (current) drug therapy; Z79.82 Long term (current) use of aspirin; Z90.49 Acquired absence of other specified parts of digestive tract; Z90.710 Acquired absence of both cervix and uterus; Z98.890 Other specified postprocedural states